=== PATIENT | male | born 1980 | race Caucasian/White ===

== ENCOUNTER 2017-06-16 20:09 | Emergency (ER) | payer OTHER ==
[~2017-06-16] VITALS: Ht 170.2 cm; Wt 130.0 kg
[2017-06-16] MEDS ORDERED: ACETAMINOPHEN WITH CODEINE 300/30MG TABLET PO STA (20:46)
[2017-06-16 21:27] LABS: BASOPHILS % 0.6 % (0.0-2.0); EOSINOPHILS % 1.2 % (0.0-5.0); HEMATOCRIT. 45.7 % (42.0-52.0); HEMOGLOBIN. 15.2 g/dL (14.0-18.0); LYMPHOCYTES % 23.2 % (20.0-50.0); MEAN CORPUSCULAR HEMOGLOBIN 29.4 pg (28.0-32.0); MEAN CORPUSCULAR VOLUME 88.1 fL (80.0-94.0); MEAN PLATELET VOLUME 9.1 fl (7.4-10.4); MONOCYTES % 8.5 % (2.0-8.0); NEUTROPHILS % 66.5 % (40.0-76.0); PLATELET 222 x1000/uL (130-400); RED BLOOD CELL COUNT 5.18 mill/uL (4.7-6.1); RED CELL DISTRIBUTION WIDTH 13.6 % (11.6-14.6)
[2017-06-16 21:32] LABS: CHLORIDE 105 mEq/L (98-107)
[2017-06-16 21:38] LABS: TROPONIN I < 0.02 ng/mL (0.00-0.04)
[2017-06-16 22:16] LABS: PROTHROMBIN TIME 10.7 sec (9.4-11.6)
[2017-06-16 22:59] VITALS: BP 137/81
== END 2017-06-16 23:00 | disposition home or self-care (01) ==
LOC: ER 20:09
DX: R05 Cough (principal); R09.81 Nasal congestion; R07.89 Other chest pain
CPT/HCPCS: 36415; 71045; 80053; 84484; 85025; 85610; 87804; 93005; 99285; Z7610